=== PATIENT | female | born 1990 | race Caucasian/White ===

== ENCOUNTER 2016-07-12 16:47 | Emergency (ER) | payer BC, OTHER ==
[2016-07-12 17:43] VITALS: BP 114/76
--- NOTE | 2016-07-12 20:00 | EDM.PDOC ---
ED HISTORY OF PRESENT ILLNESS - General Chief Complaint: Respiratory Problem Stated Complaint: CHEST PAIN LT SIDE WHEN BREATH Time Seen by Provider: 07/12/16 19:57 Source of Information: Reports: Patient History Limitations: Reports: No limitations - History of Present Illness INITIAL COMMENTS - FREE TEXT/NARRATIVE: 25 yo [place] female c/o left side upper anterior chest pain ( Non reproducible) X 1 day Denies cough and fever, smoking and trauma Symptom Onset Date: 07/12/16 Symptom Onset Time: 12:00 Timing/Duration: Reports: Hour(s): Severity: moderate Location, General: Reports: chest Worsens with: Reports: Breathing, Movement Context, General: Reports: Activity Associated Symptoms (General): Reports: chest pain - Related Data Allergies/ADRs: Allergies Allergy/AdvReac Type Severity Reaction Status Date / Time No Known Allergies Allergy Verified 07/12/16 17:43 Home Meds: Home Meds . [No Known Home Meds] 07/12/16 [History] Past Medical History - Past Health History Medical/Surgical History: Denies Medical/Surgical History Cardiovascular History: Reports: Other (see below) Other Cardiovascular History: Aortic regurgitation diagnosed in High school Respiratory History: Reports: Other (see below) Other Respiratory History: seasonal allergies Social & Family History - Family History Family Medical History: Noncontributory - Tobacco Use Smoking Status *Q: Never Smoker Second Hand Smoke Exposure: No - Caffeine Use Caffeine Use: Reports: Coffee - Recreational Drug Use Recreational Drug Use: No ED ROS GENERAL - Review of Systems Review Of Systems: See Below Constitutional: Reports: no symptoms HEENT: Reports: No symptoms Respiratory: Reports: Pleuritic Chest Pain Cardiovascular: Reports: Chest pain Endocrine: Reports: no symptoms GI/Abdominal: Reports: No symptoms : Reports: no symptoms Musculoskeletal: Reports: no symptoms Skin: Reports: no symptoms Neurological: Reports: No Symptoms Psychiatric: Reports: No symptoms Hematologic/Lymphatic: Reports: no symptoms Immunologic: Reports: no symptoms ED EXAM, GENERAL - Physical Exam Exam: See Below Exam Limited By: No limitations General Appearance: alert, WD/WN, no apparent distress Eye Exam: bilateral eye: PERRL Ears: normal external exam Nose: normal inspection Throat/Mouth: Normal inspection Head: atraumatic Neck: normal inspection Respiratory/Chest: no respiratory distress, lungs clear, normal breath sounds, no accessory muscle use, chest non-tender Cardiovascular: normal peripheral pulses, regular rate, rhythm GI/Abdominal: normal bowel sounds Back Exam: normal inspection Extremities: normal inspection, normal range of motion Neurological: alert, oriented, CN II-XII intact Psychiatric: normal affect, normal mood Skin Exam: Warm Lymphatic: no adenopathy Course - Vital Signs Last Recorded V/S: Last Vital Signs Temp 36.6 C 07/12/16 17:37 Pulse 60 07/12/16 17:37 Resp 18 07/12/16 17:37 BP 114/76 07/12/16 17:37 Pulse Ox 100 07/12/16 17:37 - Orders/Labs/Meds Orders: Active Orders 24 hr Category Date Time Status Chest 2V [CR] Urgent Exams 07/12/16 19:57 Taken Labs: Laboratory Tests 07/12/16 Range/Units 20:00 Urine HCG, Qual Negative Meds: Medications Discontinued Medications Generic Name Dose Route Start Last Admin Trade Name Felicita PRN Reason Stop Dose Admin Ibuprofen 600 mg 07/12/16 20:40 Motrin PO 07/12/16 20:41 ONETIME ONE Departure - Departure Time of Disposition: 20:43 Disposition: Home, Self-Care 01 Condition: good Clinical Impression: Pleuritic chest pain Forms: ED Department Discharge Additional Instructions: Rest Increase fluids ( Water / Juice) Take Anti-inflammatory - IBUPROFEN 600MG TID # 30 NEEDED W/ FOOD FOR THE PLEURITIC PAIN F/U w/ PCP - My Orders Last 24 Hours: My Active Orders 07/12/16 19:57 Chest 2V [CR] Urgent - Assessment/Plan Last 24 Hours: My Active Orders 07/12/16 19:57 Chest 2V [CR] Urgent
[2016-07-12] MEDS ORDERED: Ibuprofen 600 MG Tab PO ONE (20:40)
== END 2016-07-12 20:50 | disposition home or self-care (01) ==
LOC: DL.ED 16:47
DX: R07.81 Pleurodynia (principal)
CPT/HCPCS: 71020; 81025; 99284; A9270

== ENCOUNTER 2017-06-25 17:17 | Emergency (ER) | payer BC ==
[2017-06-25 17:42] VITALS: BP 96/66
[2017-06-25] MEDS ORDERED: Amoxicillin/Clavulanate K 875-125 MG Tab PO ONE (18:42)
--- NOTE | 2017-07-20 08:18 | EDM.PDOC ---
Scribed by Asiya Murphy 07/20/17 0818 for Diomedes Acosta MD ED HPI GENERAL MEDICAL PROBLEM - General Chief Complaint: Fever Stated Complaint: HIGH FEVER [id number] Time Seen by Provider: 06/25/17 17:50 Source of Information: Reports: Patient, RN, RN Notes Reviewed History Limitations: Reports: No Limitations - History of Present Illness INITIAL COMMENTS - FREE TEXT/NARRATIVE: C/O sore throat x3 days with painful swallowing, fever, chills, and nausea. Denies any known sick contacts. Onset: Gradual Duration: Day(s): (3) Location: Reports: Other (throat) Quality: Reports: Ache, Burning Severity: Moderate Improves with: Reports: None Worsens with: Reports: None Associated Symptoms: Reports: No Other Symptoms Left Throat Pain Score (Numeric/FACES): 6 - Related Data Allergies Allergy/AdvReac Type Severity Reaction Status Date / Time No Known Allergies Allergy Verified 06/25/17 17:32 Home Meds: Home Meds . [No Known Home Meds] 07/12/16 [History] Past Medical History - Past Health History Medical/Surgical History: Denies Medical/Surgical History HEENT History: Reports: None Cardiovascular History: Reports: None Other Cardiovascular History: Aortic regurgitation diagnosed in High school Respiratory History: Reports: Other (See Below) Other Respiratory History: seasonal allergies Gastrointestinal History: Reports: None Genitourinary History: Reports: None CHIP UNLOADER History: Reports: None Musculoskeletal History: Reports: None Neurological History: Reports: None Psychiatric History: Reports: None Endocrine/Metabolic History: Reports: None Hematologic History: Reports: None Immunologic History: Reports: None Oncologic (Cancer) History: Reports: None Dermatologic History: Reports: None - Infectious Disease History Infectious Disease History: Reports: Chicken Pox - Past Surgical History Head Surgeries/Procedures: Reports: None Social & Family History - Family History Family Medical History: Noncontributory - Tobacco Use Smoking Status *Q: Never Smoker Second Hand Smoke Exposure: No - Caffeine Use Caffeine Use: Reports: Coffee - Recreational Drug Use Recreational Drug Use: No - Living Situation & Occupation Occupation: Unemployed ED ROS ENT - Review of Systems Review Of Systems: ROS reveals no pertinent complaints other than HPI. ED EXAM, ENT - Physical Exam Exam: See Below Exam Limited By: No Limitations General Appearance: Alert, WD/WN, No Apparent Distress Eye Exam: Bilateral Eye: Normal Inspection Ears: Normal External Exam, Normal Canal, Hearing Grossly Normal, Normal TMs Nose: Normal Inspection, Normal Mucousa, No Blood Mouth/Throat: Normal Gums, Normal Lips, Normal Teeth, Pharyngeal Erythema, Tonsillar Erythema, Tonsillar Exudates, Tonsillar Swelling. No: Muffled Voice, Throat Swelling, Tongue Swelling, Trismus, Uvular Deviation, Uvular Edema Head: Atraumatic, Normocephalic Neck: Full Range of Motion, Other (shoddy cervical LAD, no nuchal rigidity) Respiratory/Chest: No Respiratory Distress, Lungs Clear, Normal Breath Sounds, No Accessory Muscle Use, Chest Non-Tender Cardiovascular: Regular Rate, Rhythm, Tachycardia GI/Abdominal: Normal Bowel Sounds, Soft, Non-Tender, No Organomegaly, No Distention, No Abnormal Bruit, No Mass (Female) Exam: Deferred Rectal (Female) Exam: Deferred Back: Normal Inspection, Full Range of Motion. No: CVA Tenderness (L), CVA Tenderness (R) Extremities: Normal Inspection, Normal Range of Motion, Non-Tender, No Pedal Edema, Normal Capillary Refill Neurological: Alert, Oriented, CN II-XII Intact, Normal Cognition, Normal Gait, No Motor/Sensory Deficits Psychiatric: Normal Affect, Normal Mood Skin: Warm, Dry, Intact, Normal Color, No Rash Course - Vital Signs Last Recorded V/S: Last Vital Signs Temp 38.1 C 06/25/17 17:25 Pulse 100 06/25/17 17:38 Resp 16 06/25/17 17:38 BP 96/66 06/25/17 17:38 Pulse Ox 98 06/25/17 17:38 Orthostatic Blood Pressure [ 95/60 Supine] Orthostatic Blood Pressure [ 97/65 Standing] - Orders/Labs/Meds Labs: Rapid strep: Negative. Influenza A and B: Negative. Meds: Medications Discontinued Medications Generic Name Dose Route Start Last Admin Trade Name Freq PRN Reason Stop Dose Admin Amoxicillin/Clavulanate Potassium 1 tab 06/25/17 18:42 06/25/17 18:46 Augmentin 875 Mg/125 Mg PO 06/25/17 18:43 1 tab ONETIME ONE Administration Departure - Departure Time of Disposition: 18:27 Disposition: Home, Self-Care 01 Condition: Good Clinical Impression: Tonsillitis Pharyngitis Qualifiers: Pharyngitis/tonsillitis etiology: unspecified etiology Qualified Code(s): J02.9 - Acute pharyngitis, unspecified - Discharge Information Instructions: Tonsillitis, [id number], Pharyngitis, [id number] Referrals: PCP,None [Primary Care Provider] - Forms: ED Department Discharge Additional Instructions: RX: Augmentinn 875mg. Salt water gargles until improved. Follow up in clinic if not improving in 3 to 4 days. I have read and agree with the documentation that has been completed regarding this visit. By signing this record, I attest that the documentation was completed in my physical presence and is an accurate record of the encounter.
== END 2017-06-25 18:51 | disposition home or self-care (01) ==
LOC: DL.ED 17:17
DX: J03.90 Acute tonsillitis, unspecified (principal)
CPT/HCPCS: 87081; 87430; 87804; 99283; A9270